=== PATIENT | male | born 1990 | race Caucasian/White ===

== ENCOUNTER 2017-04-18 13:05 | Emergency (ER) | payer OTHER ==
[~2017-04-18] VITALS: Ht 185.4 cm; Wt 113.6 kg
[~2017-04-18 13:05] MED LIST: IBUP-238 PO; LORT5TAB PO
[2017-04-18] MEDS ORDERED: IOHEXOL 350 MG/ML 10 ML VIAL (for RAD DIAG) IVCONTRAST ONE (13:06)
[2017-04-18 13:07] VITALS: BP 131/78; PULSE 96; RESP 14; TEMP 99.4; O2SAT 97
[2017-04-18 14:32] LABS: AUTOMATED NEUTROPHIL # 9.2 TH/MM3 (1.8-7.7); BASOPHIL % 0.2 % (0.0-2.0); EOSINOPHIL % 0.1 % (0.0-4.0); HEMATOCRIT 45.3 % (39.0-51.0); HEMOGLOBIN 15.5 GM/DL (13.0-17.0); LYMPH % 2.9 % (9.0-44.0); LYMPHOCYTE # 0.3 TH/MM3 (1.0-4.8); MEAN CELL VOLUME 87.6 FL (80.0-100.0); MEAN CORPUSCULAR HEMOGLOBIN 29.9 PG (27.0-34.0); MEAN CORPUSCULAR HGB CONC 34.1 % (32.0-36.0); MEAN PLATELET VOLUME 8.5 FL (7.0-11.0); MONO % 5.2 % (0.0-8.0); MONOCYTE # 0.5 TH/MM3 (0-0.9); NEUT % 91.6 % (16.0-70.0); PLATELET COUNT 190 TH/MM3 (150-450); RED BLOOD COUNT 5.17 MIL/MM3 (4.50-5.90); RED CELL DISTRIBUTION WIDTH 13.1 % (11.6-17.2); WHITE BLOOD COUNT 10.1 TH/MM3 (4.0-11.0)
[2017-04-18 14:56] LABS: ALBUMIN 3.9 GM/DL (3.4-5.0); AST (GOT) 25 U/L (15-37); BICARBONATE 27.6 MEQ/L (21.0-32.0); BLOOD UREA NITROGEN 15 MG/DL (7-18); CALCIUM 8.8 MG/DL (8.5-10.1); CHLORIDE 103 MEQ/L (98-107); CREATININE 0.96 MG/DL (0.60-1.30); GLOMERULAR FILTRATION RATE 93 ML/MIN (>89); GLUCOSE,RANDOM 106 MG/DL (74-106); SODIUM (NA) 138 MEQ/L (136-145)
[2017-04-18 15:01] LABS: ALKALINE PHOSPHATASE 80 U/L (45-117); ALT (GPT) 43 U/L (12-78); TOTAL BILIRUBIN ADULT 0.4 MG/DL (0.2-1.0); TOTAL PROTEIN 8.5 GM/DL (6.4-8.2)
[2017-04-18] MEDS ORDERED: OMEP20TA93 PO (15:03)
[2017-04-18] MEDS ORDERED: RANI150T PO (15:03)
[2017-04-18] MEDS ORDERED: CLAR10CA3 PO (15:03)
--- NOTE | 2017-04-18 15:19 | PD ---
HPI Chief Complaint: GI Complaint Time Seen by Provider: 15:04 Travel History International Travel<30 days: No Contact w/Intl Traveler<30days: No Traveled to known affect area: No History of Present Illness HPI 26-year-old male presents to emergency Department with complaint of body aches, vomiting, diarrhea, ear pain, sore throat, generalized abdominal pain yesterday. Was sent by the [facility]. Specifically has right lower quadrant and right upper quadrant abdominal pain, but otherwise generalized. Reports burning on urination. Denies penile discharge. MAXIMUM TEMPERATURE in the 100.6. Denies history of abdominal surgeries. No one else with similar symptoms. Has taken Sudafed for symptom management. Last vomited 20 minutes ago. Has not taken any other medications or try any other treatments to alleviate his symptoms. No known relieving or aggravating factors. No known sick contacts. No known allergies. Denies significant past medical history. Primary care provider is [facility]. Has no medical complaints. No other modifying factors or associated signs and symptoms. PFSH Past Medical History ADHD: Yes Anxiety: Yes Depression: Yes GERD: Yes Past Surgical History Surgical History: No Previous Surgery Social History Alcohol Use: No Tobacco Use: Yes Substance Use: No Allergies-Medications (Allergen,Severity, Reaction): Coded Allergies: No Known Allergies (Unverified , 04/18/17) Reported Meds & Prescriptions Reported Meds & Active Scripts Active Reported Ranitidine (Ranitidine HCl) 150 Mg Tab 150 Mg PO BID Claritin (Loratadine) 10 Mg Cap 10 Mg PO DAILY Omeprazole 20 Mg Tab 20 Mg PO DAILY Review of Systems Except as stated in HPI: all other systems reviewed are Neg Physical Exam Narrative GENERAL: Well-nourished, well-developed male patient, in no acute distress; low grade fever 99.4; nontoxic appearing SKIN: Warm and dry. No rash. HEAD: Atraumatic. Normocephalic. EYES: Pupils equal and round. No scleral icterus. No injection or drainage. ENT: Mucosa pink and moist. No erythema or exudates. No uvular edema. No uvular , palatal, or tonsillar deviation. Airway patent. EARS: Bilateral pinnae and external canals appear within normal limits. Bilateral tympanic membranes without erythema, dullness or perforation. NECK: Trachea midline. No lymphadenopathy. CARDIOVASCULAR: Regular rate and rhythm. No murmur appreciated. RESPIRATORY: No accessory muscle use. Clear to auscultation. Breath sounds equal bilaterally. No retractions or tachypnea. GASTROINTESTINAL: Abdomen soft, tenderness on palpation to RUQ and RLQ, nondistended. Hepatic and splenic margins not palpable. Positive Cain's sign Bowel sounds are active 4 quadrants. Nonrigid. No rebound tenderness. No guarding. BACK: No CVA tenderness. MUSCULOSKELETAL: No obvious deformities. No clubbing. No cyanosis. No edema. NEUROLOGICAL: Awake and alert. Oriented 3. No obvious cranial nerve deficits. Motor grossly within normal limits. Normal speech. Moves all extremities. 5/5 strength to all extremities. PSYCHIATRIC: Appropriate mood and affect; insight and judgment normal. Data Data Last Documented VS Vital Signs Date Time Temp Pulse Resp B/P (MAP) Pulse Ox O2 Delivery O2 Flow Rate FiO2 04/18/17 13:07 99.4 96 14 131/78 (95) 97 Orders Orders Complete Blood Count With Diff (04/18/17 13:12) Comprehensive Metabolic Panel (04/18/17 13:12) Lipase (04/18/17 13:12) Influenzae A/B Antigen (04/18/17 13:12) Urinalysis - C+S If Indicated (04/18/17 15:14) Ct Abd/Pel W Iv Contrast(Rout) (04/18/17 15:20) Iv Access Insert/Monitor (04/18/17 15:20) Ondansetron Inj (Zofran Inj) (04/18/17 15:30) Sodium Chlor 0.9% 1000 Ml Inj (Ns 1000 M (04/18/17 15:20) Sodium Chloride 0.9% Flush (Ns Flush) (04/18/17 15:30) Ketorolac Inj (Toradol Inj) (04/18/17 15:30) Group A Rapid Strep Screen (04/18/17 15:24) Strep Culture (Group A) (04/18/17 15:30) Morphine Inj (Morphine Inj) (04/18/17 16:30) Sodium Chlor 0.9% 1000 Ml Inj (Ns 1000 M (04/18/17 16:45) Iohexol 350 Inj (Omnipaque 350 Inj) (04/18/17 13:06) Labs Laboratory Tests Test 04/18/17 14:02 White Blood Count 10.1 TH/MM3 Red Blood Count 5.17 MIL/MM3 Hemoglobin 15.5 GM/DL Hematocrit 45.3 % Mean Corpuscular Volume 87.6 FL Mean Corpuscular Hemoglobin 29.9 PG Mean Corpuscular Hemoglobin Concent 34.1 % Red Cell Distribution Width 13.1 % Platelet Count 190 TH/MM3 Mean Platelet Volume 8.5 FL Neutrophils (%) (Auto) 91.6 % Lymphocytes (%) (Auto) 2.9 % Monocytes (%) (Auto) 5.2 % Eosinophils (%) (Auto) 0.1 % Basophils (%) (Auto) 0.2 % Neutrophils # (Auto) 9.2 TH/MM3 Lymphocytes # (Auto) 0.3 TH/MM3 Monocytes # (Auto) 0.5 TH/MM3 Eosinophils # (Auto) 0.0 TH/MM3 Basophils # (Auto) 0.0 TH/MM3 CBC Comment DIFF FINAL Differential Comment Blood Urea Nitrogen 15 MG/DL Creatinine 0.96 MG/DL Random Glucose 106 MG/DL Total Protein 8.5 GM/DL Albumin 3.9 GM/DL Calcium Level 8.8 MG/DL Alkaline Phosphatase 80 U/L Aspartate Amino Transf (AST/SGOT) 25 U/L Alanine Aminotransferase (ALT/SGPT) 43 U/L Total Bilirubin 0.4 MG/DL Sodium Level 138 MEQ/L Potassium Level 4.3 MEQ/L Chloride Level 103 MEQ/L Carbon Dioxide Level 27.6 MEQ/L Anion Gap 7 MEQ/L Estimat Glomerular Filtration Rate 93 ML/MIN Lipase 102 U/L MDM Medical Decision Making Medical Screen Exam Complete: Yes Emergency Medical Condition: Yes Medical Record Reviewed: Yes Differential Diagnosis Appendicitis, cholecystitis, cholelithiasis, gastroenteritis, influenza Narrative Course 26-year-old male with flulike symptoms including vomiting and diarrhea. MAXIMUM TEMPERATURE of 100.6. Fever in the ER is 99.4. Patient is nontoxic- appearing. Has right upper quadrant and right lower quadrant abdominal pain on physical exam. IV, normal saline bolus, Toradol, Zofran, CBC, CMP, lipase, urinalysis, CT abdomen/pelvis ordered. 1525: CBC unremarkable. CMP, lipase unremarkable. Influenza negative. 180: CT abdomen/pelvis concludes: Negative CT scan of the abdomen and pelvis. I don't and etiology for the diffuse abdominal pain. Patient provided a copy of the CT report. 1809: Patient declines urinalysis and wants to be discharged home. Zofran prescribed for home. Instructed patient to follow up with primary care provider. Patient verbalizes understanding and agreement with treatment plan. Patient is medically cleared and stable for discharge. Discussed reasons to return to the emergency department. Patient agrees with treatment plan. The patients vital signs are stable and the patient is stable for outpatient follow- up and treatment. Patient discharged home, stable and in no acute distress. Diagnosis Primary Impression: Gastroenteritis Referrals: [facility] Primary Care Physician Patient Instructions: Gastroenteritis (ED), General Instructions Additional Instructions: Take Zofran as prescribed for nausea/vomiting Increase fluid intake, starting with clear fluids; advancing to a bland diet as tolerated Blanco diet to include crackers, rice, toast, bananas as tolerated, advancing slowly to regular diet Ibuprofen or Tylenol as directed and as needed to reduce fever; may alternate ibuprofen and Tylenol as needed every 3 hours to minimize fever Nnab-hab-faejyte cold/flu medications as directed and as needed for symptom management Get plenty of sleep/rest Drink plenty of fluids to prevent dehydration; such as Gatorade, Powerade, Pedialyte Blanco diet to encourage nutrition such as crackers, fruit, applesauce, toast, soup etc. Use an air humidifier/turn off ceiling fans Follow-up with your primary care provider within 1 day Return immediately to the emergency department with worsening of symptoms Med/Other Pt SpecificInfo: Prescription(s) given Scripts Ondansetron Odt (Zofran Odt) 4 Mg Tab 4 MG SL Q8HR Y for Nausea/Vomiting, #6 TAB 0 Refills Prov: Enedelia Holland 04/18/17 Disposition: 01 DISCHARGE HOME Condition: Stable Enedelia Holland Apr 18, 2017 15:19
[2017-04-18] MEDS ORDERED: SODIUM CHLOR 0.9% 1000 ML INJ 1,000 ML IV SCH (15:20)
[2017-04-18] MEDS ORDERED: ONDANSETRON HCL 4 MG/2 ML VIAL IVP ONE (15:30)
[2017-04-18] MEDS ORDERED: KETOROLAC TROMETHAMINE 30 MG/ML (IVP) VIAL IVP ONE (15:30)
[2017-04-18] MEDS ORDERED: SODIUM CHLORIDE 0.9% FLUSH 10 ML FLUSH IV FLUSH PRN (15:30)
[2017-04-18] MEDS ORDERED: MORPHINE SULFATE 4 MG/ML INJ IV PUSH ONE (16:30)
[2017-04-18] MEDS ORDERED: SODIUM CHLOR 0.9% 1000 ML INJ 1,000 ML IV ONE (16:45)
--- NOTE | 2017-04-18 17:32 | RADRPT ---
EXAM DATE/TIME: 04/18/2017 17:08 [place] COMPARISON: No previous studies available for comparison. INDICATIONS : Diffuse abdomen pain for seven days. IV CONTRAST: 96 cc Omnipaque 350 (iohexol) IV ORAL CONTRAST: No oral contrast ingested. RADIATION DOSE: 15.48 CTDIvol (mGy) MEDICAL HISTORY : GERD SURGICAL HISTORY : None. ENCOUNTER: Initial ACUITY: 2 days PAIN SCALE: 10/10 LOCATION: Bilateral upper quadrant TECHNIQUE: Volumetric scanning of the abdomen and pelvis was performed. Using automated exposure control and adjustment of the mA and/or kV according to patient size, radiation dose was kept as low as reasonably achievable to obtain optimal diagnostic quality images. DICOM format image data is av ailable electronically for review and comparison. FINDINGS: Lung base is are clear. The liver, spleen, pancreas, adrenals unremarkable 1 mm nonobstructing right renal stone Left kidney is unremarkable There no inflammatory changes in the abdomen There is no retroperitoneal adenopathy In the pelvis there is are no diverticuli There no inflammatory changes or free fluid. Bladder prost ate and the vessels unremarkable Review of bone windows reveals only mild degenerative changes in the lower lumbar spine. CONCLUSION: Negative CT scan of the abdomen and pelvis. I don't and etiology for the diffuse abd ominal pain. Femi Tyson MD FACR on April 18, 2017 at 17:20 Board Certified Radiologist. This report was verified electronically.
[2017-04-18] MEDS ORDERED: ZOFR4TAB3 SL (18:11)
== END 2017-04-18 18:33 | disposition home or self-care (01) ==
LOC: NEPD 13:05
DX: K52.9 Noninfective gastroenteritis and colitis, unspecified (principal); R30.0 Dysuria; J02.9 Acute pharyngitis, unspecified; H92.09 Otalgia, unspecified ear; Z72.0 Tobacco use
CPT/HCPCS: 74177; 80053; 83690; 85025; 87081; 87804; 87880; 96361; 96374; 96375; 99285; J1885; J2405; J7030; Q9967